=== PATIENT | female | born 1980 | race Caucasian/White ===

== ENCOUNTER 2025-04-09 15:39 | Outpatient (CLI) | payer BC, SELFPAY | END 2025-04-09 15:40 | disposition home or self-care (01) | PROVIDERS: Visit Provider Physician Assistant Medical | DX: G43.909 Migraine, unspecified, not intractable, without status migrainosus (principal) | CPT/HCPCS: 80053; 84443 ==

== ENCOUNTER 2025-04-13 13:30 | Outpatient (CLI) | payer BC, SELFPAY ==
--- NOTE | 2025-04-13 13:45 | CRLHL7_ITS ---
For Patients: As a result of the Cures Act, medical imaging exams and procedure reports are released immediately into your electronic medical record. You may view this report before your referring provider. If you have questions, please contact your health care provider. INDICATION: Migraine headaches. COMPARISON: None. TECHNIQUE: Multiplanar T1, T2, FLAIR and diffusion-weighted imaging. FINDINGS: Normal brain parenchymal morphology. Few scattered foci of T2/FLAIR signal hyperintensity within the white matter of both cerebral hemispheres. Scattered foci of T2/FLAIR signal hyperintensity within the white matter of both cerebral hemispheres are nonspecific and may represent chronic deep white matter small vessel ischemic changes or sequela of migraine headache. No intracranial hemorrhage. No abnormal ventricular dilatation. Intracranial vascular flow voids are preserved. No mass effect or midline shift. No restricted diffusion to suggest acute ischemia. No susceptibility artifact of remote hemorrhage. Bilateral orbits are unremarkable. Normal appearing sella. Visualized paranasal sinuses and mastoid air cells are unremarkable. IMPRESSION: 1. No acute intracranial abnormality 2. Normal brain parenchymal morphology. Few scattered foci of T2 signal within the white matter of both cerebral hemispheres may represent chronic deep white matter small vessel ischemic changes or sequela of migraine headache. 3. No acute or chronic intracranial hemorrhage Dictated by Miguel Bansal MD @ 04/13/2025 3:28:20 PM (Electronically Signed)
== END 2025-04-13 13:31 | disposition home or self-care (01) ==
LOC: MRI 13:30
PROVIDERS: Visit Provider Physician Assistant Medical
DX: G43.909 Migraine, unspecified, not intractable, without status migrainosus (principal)
CPT/HCPCS: 70551